=== PATIENT | male | born 1970 | race Caucasian/White ===

== ENCOUNTER 2018-06-14 16:31 | Emergency (ER) | payer SELFPAY ==
[~2018-06-14] VITALS: Ht 172.7 cm; Wt 81.2 kg
[2018-06-14 17:17] VITALS: BP 149/74; PULSE 87; RESP 18; Ht 172.7 cm; Wt 81.2 kg
== END 2018-06-14 17:40 | disposition left against medical advice (07) ==
LOC: FTE 16:31
DX: Z53.21 Procedure and treatment not carried out due to patient leaving prior to being seen by health care provider (principal)